=== PATIENT | female | born 1970 | race Caucasian/White ===

== ENCOUNTER 2021-01-23 09:37 | Inpatient (IN) | payer OTHER ==
[2021-01-23] MEDS ORDERED: ACETAMINOPHEN 1000 MG/100 ML VIAL (NON FORMULARY) IVPB ONE (10:55)
[2021-01-23] MEDS ORDERED: ACETAMINOPHEN INJECTION 100 ML IVPB ONE (11:20)
[2021-01-23 11:38] LABS: BASO % 0.7 % (0-2.0); EOS % 2.9 % (0-4.5); HEMATOCRIT 39.9 % (32.4-45.2); HEMOGLOBIN 13.8 GM/dL (10.7-15.3); LYMPH % 30.8 % (8-40); MCH 30.5 pg (25.7-33.7); MCHC 34.5 g/dl (32.0-36.0); MEAN CELL VOLUME 88.5 fl (80-96); MEAN PLT VOLUME 8.9 fl (7.5-11.1); MONO % 10.5 % (3.8-10.2); NEUT % 55.1 % (42.8-82.8); PLATELET COUNT 250 K/MM3 (134-434); RBC 4.51 M/mm3 (3.60-5.2); RDW 12.8 % (11.6-15.6); WHITE BLOOD COUNT 8.7 K/mm3 (4.0-10.0)
[2021-01-23 11:47] LABS: INR 0.97 (0.83-1.09); PROTHROMBIN TIME (PATIENT) 11.8 SEC (9.7-13.0)
[2021-01-23 11:50] LABS: ACTIVATED PTT 25.2 SECONDS (25.2-36.5)
[2021-01-23] MEDS ORDERED: diazePAM 2 MG TABLET PO ONE (11:51)
[2021-01-23] MEDS ORDERED: MECLIZINE HCL 12.5 MG TABLET PO ONE (11:51)
[2021-01-23 11:56] LABS: CHLORIDE 102 mmol/L (98-107); SODIUM 139 mmol/L (136-145)
[2021-01-23 11:58] LABS: ALBUMIN 3.7 g/dl (3.4-5.0)
[2021-01-23 11:59] LABS: ANION GAP 7 MMOL/L (8-16); BLOOD UREA NITROGEN 11.1 mg/dL (7-18); CALCIUM 9.1 mg/dL (8.5-10.1); CO2 30 mmol/L (21-32); GLUCOSE,RANDOM 230 mg/dL (74-106)
[2021-01-23 12:01] LABS: MAGNESIUM 1.3 mg/dL (1.8-2.4)
[2021-01-23 12:02] LABS: CREATININE 0.7 mg/dL (0.55-1.3); SGOT/AST 19 U/L (15-37); SGPT/ALT 34 U/L (13-61)
[2021-01-23] MEDS ORDERED: MAGNESIUM SULF 50% (8.12 MEQ/2 ML-1 GM VIAL) IVPB ONE (12:02)
[2021-01-23 12:03] LABS: BILIRUBIN,TOTAL 0.4 mg/dL (0.2-1)
[2021-01-23 12:04] LABS: TOT PROT 7.1 g/dl (6.4-8.2)
[2021-01-23 12:05] LABS: ALK PHOS 74 U/L (45-117)
[2021-01-23] MEDS ORDERED: MECLIZINE HCL 12.5 MG TABLET ONE (12:16)
[2021-01-23] MEDS ORDERED: diazePAM 2 MG TABLET ONE (12:16)
[2021-01-23] MEDS ORDERED: MAGNESIUM SULFATE IN WATER 2 GM/50 ML IVPB IVPB ONE (12:17)
[2021-01-23] MEDS ORDERED: MECLIZINE HCL 25 MG TABLET (FP) PO ONE (15:04)
[2021-01-23] MEDS ORDERED: MECLIZINE HCL 25 MG TABLET (FP) ONE (15:51)
[2021-01-24] MEDS ORDERED: DEXTROSE 5%-0.45% SALINE 1,000 ML IV SCH ×2 (02:00→20:01)
[2021-01-24 05:19] VITALS: BMI 35.4
[2021-01-24] MEDS ORDERED: LEVOTHYROXINE SODIUM 100 MCG VIAL IVPUSH SCH (07:00)
[2021-01-24] MEDS ORDERED: ACETAMINOPHEN 1000 MG/100 ML VIAL (NON FORMULARY) IVPB PRN ×2 (07:05→20:01)
[2021-01-24 08:56] LABS: BASO % 0.6 % (0-2.0); EOS % 3.7 % (0-4.5); HEMATOCRIT 39.4 % (32.4-45.2); HEMOGLOBIN 13.6 GM/dL (10.7-15.3); LYMPH % 31.5 % (8-40); MCH 30.6 pg (25.7-33.7); MCHC 34.7 g/dl (32.0-36.0); MEAN CELL VOLUME 88.2 fl (80-96); MEAN PLT VOLUME 8.5 fl (7.5-11.1); MONO % 9.2 % (3.8-10.2); PLATELET COUNT 241 K/MM3 (134-434); RBC 4.46 M/mm3 (3.60-5.2); RDW 13.4 % (11.6-15.6); WHITE BLOOD COUNT 7.9 K/mm3 (4.0-10.0)
[2021-01-24 09:32] LABS: BLOOD UREA NITROGEN 8.1 mg/dL (7-18); CALCIUM 8.7 mg/dL (8.5-10.1)
[2021-01-24 09:33] LABS: ALBUMIN 3.4 g/dl (3.4-5.0); MAGNESIUM 1.6 mg/dL (1.8-2.4)
[2021-01-24 09:35] LABS: CREATININE 0.7 mg/dL (0.55-1.3)
[2021-01-24 09:36] LABS: BILIRUBIN,TOTAL 0.6 mg/dL (0.2-1)
[2021-01-24 09:37] LABS: TOT PROT 6.7 g/dl (6.4-8.2)
[2021-01-24] MEDS ORDERED: HEPARIN NA (PORCINE) 5,000 UNITS/ML 1ML VIAL SQ SCH (10:00)
[2021-01-24] MEDS ORDERED: GENTAMICIN SO4 80 MG/2 ML VIAL ONE (11:04)
[2021-01-24] MEDS ORDERED: BUPIVACAINE HCL/PF 0.5% (5MG/ML) 10 ML VIAL ONE (11:06)
[2021-01-24] MEDS ORDERED: THROMBIN (BOVINE) 20,000 UNIT VIAL TP ONE (11:07)
[2021-01-24] MEDS ORDERED: MIDAZOLAM HCL 2 MG/2 ML SINGLE DOSE VIAL ONE ×2 (11:50)
[2021-01-24] MEDS ORDERED: PROPOFOL 20 ML ONE (11:50)
[2021-01-24] MEDS ORDERED: fentaNYL CITRATE 250 MCG/5 ML VIAL ONE (11:50)
[2021-01-24] MEDS ORDERED: ROCURONIUM BROMIDE 50 MG/5 ML SYRINGE ONE (11:50)
[2021-01-24] MEDS ORDERED: LIDOCAINE HCL/PF 2% SDV 5ML VIAL ONE (12:27)
[2021-01-24] MEDS ORDERED: ceFAZolin SODIUM 1 GM VIAL ONE (12:37)
[2021-01-24] MEDS ORDERED: VANCOMYCIN 1,000 MG VIAL (RESTRICTED TO ID ONLY) ONE (12:37)
[2021-01-24] MEDS ORDERED: ceFAZolin SODIUM 1 GM VIAL IVPB ONE ×2 (12:44)
[2021-01-24] MEDS ORDERED: VANCOMYCIN 1,000 MG VIAL (RESTRICTED TO ID ONLY) IVPB ONE ×2 (12:44)
[2021-01-24] MEDS ORDERED: LIDOCAINE 1%/EPI 1:100000 (50 ML MULTI DOSE VIAL) INF ONE (12:45)
[2021-01-24] MEDS ORDERED: HYDROGEN PEROXIDE 473 ML PO ONE (12:55)
[2021-01-24] MEDS ORDERED: BACITRACIN 50,000 UNITS VIAL TP ONE (12:55)
[2021-01-24] MEDS ORDERED: GENTAMICIN SO4 80 MG/2 ML VIAL IVPB ONE (12:55)
[2021-01-24] MEDS ORDERED: ONDANSETRON 4 MG/2 ML VIAL ONE ×2 (12:56→14:08)
[2021-01-24] MEDS ORDERED: DEXAMETHASONE SOD PHOSPHATE 4 MG/1 ML VIAL ONE (12:56)
[2021-01-24] MEDS ORDERED: FAMOTIDINE 20 MG/50 ML IVPB 20 MG/50 ML MG IVPB ONE ×2 (14:00→17:45)
[2021-01-24] MEDS ORDERED: NEOSTIGMINE METHYLSULFATE 0.5 MG/1 ML - 10 ML MDV ONE (14:06)
[2021-01-24] MEDS ORDERED: ONDANSETRON 4 MG/2 ML VIAL IVPUSH PRN ×4 (14:33→20:01)
[2021-01-24] MEDS ORDERED: LACTATED RINGERS SOLUTION 1,000 ML IV SCH ×2 (14:45→15:15)
[2021-01-24] MEDS ORDERED: oxyCODONE HCL 5 MG TABLET PO PRN ×3 (15:14→20:01)
[2021-01-24] MEDS ORDERED: HYDROmorphone HCl 2 MG/ML VIAL SQ PRN (17:16)
[2021-01-24] MEDS ORDERED: CEFAZOLIN 2 GM/D5W 2 GM/50 ML ML IVPB SCH (18:00)
[2021-01-24] MEDS ORDERED: INSULIN (NOVOLOG) ASPART 100 UNITS/ML 10ML VIAL SQ ONE (19:31)
[2021-01-24] MEDS: CEFAZOLIN 2 GM/D5W 2 GM/50 ML ML IVPB SCH (20:32)
[2021-01-24] MEDS: LACTATED RINGERS SOLUTION 1,000 ML IV SCH (22:18)
[2021-01-24] MEDS: HEPARIN NA (PORCINE) 5,000 UNITS/ML 1ML VIAL SQ SCH (22:19)
[2021-01-24] MEDS: INSULIN SLIDING SCALE (NOVOLOG) 1 VIAL SQ SCH (22:41)
[2021-01-24] MEDS: HYDROmorphone HCl 2 MG/ML VIAL SQ PRN (23:25)
[2021-01-25] MEDS: oxyCODONE HCL 5 MG TABLET PO PRN ×2 (02:25→16:53)
[2021-01-25] MEDS: CEFAZOLIN 2 GM/D5W 2 GM/50 ML ML IVPB SCH (02:26)
[2021-01-25] MEDS: LACTATED RINGERS SOLUTION 1,000 ML IV SCH (04:35)
[2021-01-25] MEDS: HYDROmorphone HCl 2 MG/ML VIAL SQ PRN ×2 (05:29→13:41)
[2021-01-25] MEDS: INSULIN SLIDING SCALE (NOVOLOG) 1 VIAL SQ SCH ×3 (06:26→16:49)
[2021-01-25] MEDS ORDERED: LEVOTHYROXINE SODIUM 100 MCG VIAL IVPUSH SCH (07:00)
[2021-01-25] MEDS: HEPARIN NA (PORCINE) 5,000 UNITS/ML 1ML VIAL SQ SCH (10:05)
[2021-01-25] MEDS ORDERED: PT OWN MED DRAWER 7, Y5N ONE (13:35)
[2021-01-25] MEDS ORDERED: GABAPENTIN 300 MG CAPSULE PO SCH (14:00)
[2021-01-25 14:16] VITALS: BP 101/57; PULSE 76; TEMP 98.3
[2021-01-26] MEDS ORDERED: glipiZIDE-XL 10 MG TAB.ER.24 (FP) PO SCH (07:00)
[2021-01-26] MEDS ORDERED: LEVOTHYROXINE SODIUM 200 MCG PO SCH (10:00)
== END 2021-01-25 18:21 | disposition home health service (06) | DRG 321 ==
LOC: JER 09:37 → JERBED 01-24 01:13 → J5S 01-24 04:52 → J8W 01-24 17:07 → J4S 01-24 19:30
PROVIDERS: ADMIT Internal Medicine; ATTEND Family Medicine
PROC: 0PH304Z Insertion of Internal Fixation Device into Cervical Vertebra, Open Approach (ICD-10-PCS; 2021-01-24)
PROC: 0RB30ZZ Excision of Cervical Vertebral Disc, Open Approach (ICD-10-PCS; 2021-01-24)
PROC: 00NW0ZZ Release Cervical Spinal Cord, Open Approach (ICD-10-PCS; 2021-01-24)
PROC: B01BZZZ Fluoroscopy of Spinal Cord (ICD-10-PCS; 2021-01-24)
PROC: 4A10X4G Monitoring of Central Nervous Electrical Activity, Intraoperative, External Approach (ICD-10-PCS; 2021-01-24)
PROC: 0RG10A0 Fusion of Cervical Vertebral Joint with Interbody Fusion Device, Anterior Approach, Anterior Column, Open Approach (ICD-10-PCS; principal; 2021-01-24 12:00)
DX: M47.22 Other spondylosis with radiculopathy, cervical region (principal); M47.12 Other spondylosis with myelopathy, cervical region; G95.89 Other specified diseases of spinal cord; G91.9 Hydrocephalus, unspecified; M48.02 Spinal stenosis, cervical region; E11.9 Type 2 diabetes mellitus without complications; E78.5 Hyperlipidemia, unspecified; D25.9 Leiomyoma of uterus, unspecified; J45.909 Unspecified asthma, uncomplicated; E03.9 Hypothyroidism, unspecified; E66.9 Obesity, unspecified; Z68.35 Body mass index [BMI] 35.0-35.9, adult; M62.81 Muscle weakness (generalized); G47.33 Obstructive sleep apnea (adult) (pediatric); S16.1XXA Strain of muscle, fascia and tendon at neck level, initial encounter; M50.321 Other cervical disc degeneration at C4-C5 level; Z85.850 Personal history of malignant neoplasm of thyroid; X58.XXXA Exposure to other specified factors, initial encounter; M48.8X2 Other specified spondylopathies, cervical region; M43.02 Spondylolysis, cervical region
CPT/HCPCS: 36415; 70450-TC; 70496-TC; 70498-TC; 71046-TC-FY; 72125-TC; 72141-TC; 80053; 80061; 82607; 82962; 83036; 83721; 83735; 84443; 84484; 85025; 85610; 85730; 86850; 86900; 86901; 93005; 93010; 94760; 97116-GP; 97161-GP; 99285-25; C9803; J0131; J1644; Q9967; U0003; U0005

== ENCOUNTER 2022-03-11 20:55 | Emergency (ER) | payer OTHER ==
[2022-03-11 21:21] VITALS: TEMP 97; BMI 35.7
[2022-03-11] MEDS ORDERED: METOCLOPRAMIDE HCL INJECTION 10 MG/2 ML VIAL IVPUSH ONE (22:51)
[2022-03-11] MEDS ORDERED: ACETAMINOPHEN 1000 MG/100 ML BAG IVPB ONE (22:51)
[2022-03-11] MEDS ORDERED: METOCLOPRAMIDE HCL INJECTION 10 MG/2 ML VIAL ONE (23:07)
[2022-03-11] MEDS ORDERED: ACETAMINOPHEN INJECTION 100 ML IVPB ONE (23:07)
[2022-03-11 23:43] LABS: BASO % 0.5 % (0-2.0); EOS % 3.7 % (0-4.5); HEMATOCRIT 37.2 % (32.4-45.2); HEMOGLOBIN 12.9 GM/dL (10.7-15.3); LYMPH % 32.6 % (8-40); MCH 30.8 pg (25.7-33.7); MCHC 34.7 g/dl (32.0-36.0); MEAN CELL VOLUME 88.8 fl (80-96); MEAN PLT VOLUME 8.8 fl (7.5-11.1); MONO % 9.4 % (3.8-10.2); NEUT % 53.8 % (42.8-82.8); PLATELET COUNT 237 10^3/uL (134-434); RBC 4.19 M/mm3 (3.60-5.2); RDW 13.8 % (11.6-15.6); WHITE BLOOD COUNT 9.1 K/mm3 (4.0-10.0)
[2022-03-12 00:06] LABS: ALBUMIN 3.6 g/dl (3.4-5.0); CALCIUM 8.7 mg/dL (8.5-10.1); MAGNESIUM 1.8 mg/dL (1.8-2.4)
[2022-03-12 00:09] LABS: CREATININE 0.9 mg/dL (0.55-1.3)
[2022-03-12 00:11] LABS: BILIRUBIN,TOTAL 0.4 mg/dL (0.2-1); TOT PROT 6.9 g/dl (6.4-8.2)
[2022-03-12 02:35] VITALS: BP 112/70; PULSE 82
== END 2022-03-12 02:40 | disposition home or self-care (01) ==
LOC: JER 20:55
PROC: 3E033GC Introduction of Other Therapeutic Substance into Peripheral Vein, Percutaneous Approach (ICD-10-PCS; principal; 2022-03-11)
DX: R07.9 Chest pain, unspecified (principal)
CPT/HCPCS: 36415; 71046-TC-FY; 80053; 83735; 84484; 85025; 93005; 93010; 96374; 96375; 99285-25; C9803-CS; U0003; U0005

== ENCOUNTER 2024-04-16 14:43 | Emergency (ER) | payer OTHER ==
[2024-04-16 14:50] VITALS: RESP 18; BMI 35.2
[2024-04-16] MEDS ORDERED: ACETAMINOPHEN INJECTION 100 ML IVPB ONE (16:13)
[2024-04-16] MEDS: ACETAMINOPHEN 1000 MG/100 ML BAG IVPB ONE (16:30)
[2024-04-16 16:49] LABS: BASO % 0.3 % (0-2.0); EOS % 3.7 % (0-4.5); HEMATOCRIT 35.5 % (32.4-45.2); LYMPH % 33.4 % (8-40); MCH 29.1 pg (25.7-33.7); MCHC 33.8 g/dl (32.0-36.0); NEUT % 52.6 % (42.8-82.8); PLATELET COUNT 211 10^3/uL (134-434); RBC 4.13 M/mm3 (3.60-5.2); RDW 13.2 % (11.6-15.6); WHITE BLOOD COUNT 7.8 K/mm3 (4.0-10.0)
[2024-04-16 17:08] LABS: POTASSIUM 3.7 mmol/L (3.5-5.1)
[2024-04-16 17:10] LABS: ALBUMIN 3.5 g/dl (3.4-5.0)
[2024-04-16 17:11] LABS: BLOOD UREA NITROGEN 15.5 mg/dL (7-18)
[2024-04-16 17:14] LABS: CREATININE 0.7 mg/dL (0.55-1.3)
[2024-04-16 17:15] LABS: BILIRUBIN,TOTAL 0.4 mg/dL (0.2-1); TOT PROT 6.8 g/dl (6.4-8.2)
[2024-04-16] MEDS ORDERED: METOCLOPRAMIDE HCL INJECTION 10 MG/2 ML VIAL ONE (18:50)
[2024-04-16] MEDS: SODIUM CHLORIDE 1,000 ML IV ONE (19:01)
[2024-04-16] MEDS: METOCLOPRAMIDE HCL INJECTION 10 MG/2 ML VIAL IVPUSH ONE (19:01)
[2024-04-16 23:36] VITALS: BP 110/67; PULSE 72; TEMP 97.6
== END 2024-04-17 00:05 | disposition home or self-care (01) ==
LOC: JER 14:43
PROC: 3E033NZ Introduction of Analgesics, Hypnotics, Sedatives into Peripheral Vein, Percutaneous Approach (ICD-10-PCS; principal; 2024-04-16)
PROC: 3E033GC Introduction of Other Therapeutic Substance into Peripheral Vein, Percutaneous Approach (ICD-10-PCS; 2024-04-16)
PROC: 3E0337Z Introduction of Electrolytic and Water Balance Substance into Peripheral Vein, Percutaneous Approach (ICD-10-PCS; 2024-04-16)
DX: R07.89 Other chest pain (principal); R06.02 Shortness of breath; M79.661 Pain in right lower leg; M79.662 Pain in left lower leg; R51.9 Headache, unspecified; W10.9XXA Fall (on) (from) unspecified stairs and steps, initial encounter
CPT/HCPCS: 36415; 70450-TC; 71045-TC-FY; 80053; 84484; 85025; 85379; 93005; 93010; 99285-25; J0131